=== PATIENT | male | born 1970 | race Caucasian/White ===

== ENCOUNTER 2021-07-11 10:12 | Emergency (ER) | payer OTHER, SELFPAY ==
[2021-07-11 10:28] VITALS: BP 119/74; PULSE 71; RESP 18; TEMP 36.5; O2SAT 98
--- NOTE | 2021-07-11 10:28 | ED.GENADULT ---
HPI - General Adult General Chief complaint: Upper Respiratory Infection Stated complaint: sinus complaints Time Seen by Provider: 07/11/21 10:30 Source: patient Mode of arrival: ambulatory Limitations: no limitations History of Present Illness HPI narrative: 50-year-old male patient presents to the [facility] with complaints of nasal congestion for the past week. Patient denies fevers, body aches or chills. Denies any ear pain, coughing, chest pain or sore throat. Patient states mainly he just has a lot of congestion and pressure to the nasal canal and around the eyes. Patient states he has not taken anything for symptoms until last night which he took NyQuil. Patient states he is fully vaccinated against Covid with a 2 dose series. Related Data Allergies Allergy/AdvReac Type Severity Reaction Status Date / Time No Known Allergies Allergy Verified 05/18/20 13:35 Review of Systems Review of Systems: CONSTITUTIONAL: Denies fever, chills, or sweats. EYES: Denies visual changes, redness, or discharge. ENT: Positive rhinorrhea, congestion, denies sore throat, or otalgia. CARDIOVASCULAR: Denies chest pain, palpitations, or edema. RESPIRATORY: Denies cough or dyspnea. GASTROINTESTINAL: Denies abdominal pain, nausea, vomiting, or diarrhea. GENITOURINARY: Denies dysuria or hematuria. SKIN: Denies rash or itching. MUSCULOSKELETAL: Denies back pain, joint pain, or myalgia. NEUROLOGIC: Denies headache, numbness, or weakness. PSYCHIATRIC: Denies anxiety or depression. [facility] Past Medical History Medical History BMI 25.0-25.9,adult Encounter to establish care Hyperlipidemia LDL goal <100 Protein in urine Screening for prostate cancer Vitamin D deficiency Surgical History Surgical History History of vasectomy Family History Family History Father Alcohol abuse Acute myocardial infarction Social History Social History Smoking status: Never smoker Second hand tobacco smoke exposure: No Alcohol intake: current Alcohol use details: Occasional Substance use: never Substance use type: does not use Gender identity (if verbalized by the patient): Male Sexual Orientation (if Verbalized by the Patient): Straight or Heterosexual Spiritual care concerns: No Agree to blood products: Yes Comments At the time of my signature I agree with nursing past medical history, surgical, social, and family history. There is no relevant family history pertinent to the presenting complaint. Exam Narrative: GENERAL: Well-appearing, well-nourished, and in no acute distress. HEAD: Normocephalic, atraumatic. EYES: PERRLA and EOMI. ENT: Nares with erythema and edema noted bilaterally r, no rhinorrhea or epistaxis. Mucous membranes moist. Posterior pharynx with no erythema, tonsillar edema, exudates or lesions present. Bilateral TMs are clear with no erythema or foreign bodies in the canal. NECK: Supple. No lymphadenopathy CHEST: Clear to auscultation. No respiratory distress. HEART: Regular rate and rhythm. No murmur heard. Normal peripheral pulses. ABDOMEN: Soft, nontender, nondistended, normal active bowel sounds. EXTREMITIES: Normal range of motion. No edema. SKIN: Warm, dry, no rash. NEURO: No focal deficits. Alert and oriented x3. Course Reevaluation(s) Reevaluation #1: Reevaluated patient notified him that his Covid test today is negative. We will go ahead and discharge him home with oral steroids, daily antihistamine nasal steroid for his symptoms. Patient verbalized understanding denies any other questions or concerns at this time. Date: 07/11/21 Time: 11:04 Vital Signs Vital signs: Vital Signs Temperature 36.5 C 07/11/21 10:28 Pulse Rate 71 07/11/21 10:28 Respiratory Rate 18 07/11/21
== END 2021-07-11 11:05 | disposition home or self-care (01) ==
PROVIDERS: Emergency Provider Nurse Practitioner Family; PCP Family Medicine
DX: J00 Acute nasopharyngitis [common cold] (principal); J01.90 Acute sinusitis, unspecified; Z20.822 Contact with and (suspected) exposure to COVID-19; E55.9 Vitamin D deficiency, unspecified; Z98.52 Vasectomy status
CPT/HCPCS: 87426; 99213; C9803; G0463

== ENCOUNTER 2022-09-06 09:00 | Outpatient (NON) | payer OTHER, SELFPAY | END 2022-09-06 09:01 | disposition home or self-care (01) | PROVIDERS: PCP Nurse Practitioner Family; Visit Provider Internal Medicine Gastroenterology | DX: Z12.11 Encounter for screening for malignant neoplasm of colon (principal); D12.2 Benign neoplasm of ascending colon | CPT/HCPCS: 88305 ==

== ENCOUNTER 2022-09-06 10:17 | Day surgery (SDC) | payer OTHER, SELFPAY ==
[2022-08-29 09:18] VITALS: BMI 25.7
--- NOTE | 2022-09-06 07:51 | WPDANESEPPF ---
Anes - Initial Pre Proc Eval Procedure: Operation Date: 09/06/22 13:00 Proposed Procedures p Screening Colonoscopy - Bruce Rodríguez MD Date/Time: 09/06/22 07:51 Surgeon: Bruce Rodríguez MD Pre Op Diagnosis: Neoplasm Screening Patient Data Age: 51 Gender: M Height: 1.85 m Weight: 88.5 kg Allergies Allergy/AdvReac Type Severity Reaction Status Date / Time No Known Allergies Allergy Verified 09/06/22 12:17 Home Medications Medication Instructions Recorded Confirmed Type cholecalciferol (vitamin D3) 25 25 mcg PO DAILY #90 caps 05/18/20 09/06/22 Rx mcg (1,000 unit) capsule omega-3 fatty acids 1,000 mg 1,000 mg PO DAILY #90 caps 05/18/20 09/06/22 Rx capsule (Fish Oil Concentrate) multivit with minerals-iron 18 1 tablet PO DAILY 08/29/22 09/06/22 History mg-folic ac 400 mcg-vit K 25 mcg tablet (Adults Multivitamin) vitamin B12 500 mcg-folic acid 400 1 tablet PO DAILY 08/29/22 09/06/22 History mcg tablet Patient hx anesthesia problems: none Family hx anesthesia problems: none Results Review: All pre-operative results and documents have been reviewed as part of the pre-operative evaluation. [facility] Past Medical History Medical History (Updated 04/11/22 @ 15:14 by Riddhi Owen NP) B12 deficiency BMI 25.0-25.9,adult BMI 26.0-26.9,adult Elevated fasting glucose Encounter to establish care Hyperlipidemia LDL goal <100 Protein in urine Screening for colon cancer Screening for prostate cancer Vitamin D deficiency Surgical History Surgical History History of vasectomy Family History Family History Father Alcohol abuse Acute myocardial infarction Social History Social History Smoking status: Never smoker Second hand tobacco smoke exposure: No Alcohol intake: current Alcohol use details: Occasional Substance use: never Substance use type: does not use Living arrangements: with family Occupation/Education: occupation Gender identity (if verbalized by the patient): Male Sexual Orientation (if Verbalized by the Patient): Straight or Heterosexual Spiritual care concerns: No Agree to blood products: Yes Anes - Eval Final PreProcedure Day of Procedure 09/06/22 07:51 Patient weight: overweight Heart: regular rate and rhythm Lungs: clear to auscultation Airway: Mallampati scale class II Neurological: alert and oriented Last oral intake: >/= 8 hours ASA classification: II Emergent: no Anesthetic plan: proceed Anesthesia type and monitoring: general GIVS and standard monitoring Results Review: All pre-operative results and documents have been reviewed as part of the pre-operative evaluation. Informed Consent: The patient's anesthetic plan and its attendant risks and benefits were discussed with the patient/family/POA. Questions were solicited and answers provided to the satisfaction of the patient/family/POA.
[2022-09-06 11:55] VITALS: BP 120/76; PULSE 66; RESP 16; TEMP 36.7; O2SAT 100
[2022-09-06] MEDS: LACTATED RINGERS 1,000 ML 150 ML IV CONT (12:22)
--- NOTE | 2022-09-06 12:26 | PM.HPGS ---
History of Present Illness History of Present Illness Consent: Risks, benefits, and alternatives have been discussed and questions answered. Patient agrees to proceed with procedure. Chief complaint: Neoplasm Screening Narrative: Joshua Potter is a 51 year old male here for first screening colonoscopy Review of Systems Constitutional: Constitutional: Denies headache(s) and Denies weakness Eyes: Eyes: Denies blurry vision ENT: Reports Normal hearing present, Denies headache(s) and Denies neck pain Cardiovascular: Cardiovascular: Denies chest pain and Denies dyspnea Respiratory: Respiratory: Denies dyspnea Gastrointestinal: Gastrointestinal: Reports no additional gastrointestinal complaints Genitourinary: Genitourinary: Denies dysuria Musculoskeletal: Musculoskeletal: Denies neck pain Integumentary/Breasts: Skin/Breast: Denies dry skin Neurologic: Reports Normal hearing present, Denies headache(s) and Denies weakness Psychiatric: Psychiatric: Denies anxiety Endocrine: Endocrine: Denies change in body appearance Hematologic/Lymphatic: Hematologic/Lymphatic: Denies easy bleeding Allergic/Immunologic: Allergic/Immunologic: Denies urticaria PMF Past Medical History Medical History (Updated 04/11/22 @ 15:14 by Riddhi Owen NP) B12 deficiency BMI 25.0-25.9,adult BMI 26.0-26.9,adult Elevated fasting glucose Encounter to establish care Hyperlipidemia LDL goal <100 Protein in urine Screening for colon cancer Screening for prostate cancer Vitamin D deficiency Surgical History Surgical History History of vasectomy Family History Family History Father Alcohol abuse Acute myocardial infarction Social History Social History Smoking status: Never smoker Second hand tobacco smoke exposure: No Alcohol intake: current Alcohol use details: Occasional Substance use: never Substance use type: does not use Living arrangements: with family Occupation/Education: occupation Gender identity (if verbalized by the patient): Male Sexual Orientation (if Verbalized by the Patient): Straight or Heterosexual Spiritual care concerns: No Agree to blood products: Yes Meds Home Medications and Allergies Home Medications Medication Instructions Recorded Confirmed Type cholecalciferol (vitamin D3) 25 25 mcg PO DAILY #90 caps 05/18/20 09/06/22 Rx mcg (1,000 unit) capsule omega-3 fatty acids 1,000 mg 1,000 mg PO DAILY #90 caps 05/18/20 09/06/22 Rx capsule (Fish Oil Concentrate) multivit with minerals-iron 18 1 tablet PO DAILY 08/29/22 09/06/22 History mg-folic ac 400 mcg-vit K 25 mcg tablet (Adults Multivitamin) vitamin B12 500 mcg-folic acid 400 1 tablet PO DAILY 08/29/22 09/06/22 History mcg tablet Allergies Allergy/AdvReac Type Severity Reaction Status Date / Time No Known Allergies Allergy Verified 09/06/22 12:17 Vital Signs Vital Signs - 24 hr 09/06/22 11:55 Temperature 98.1 F Pulse Rate 66 Respiratory Rate 16 Blood Pressure 120/76 Pulse Oximetry 100 Oxygen Delivery Room Air Exam Const: General: comfortable and no acute distress HENMT: Face/Nose/Sinus: Normal nares present Eyes: General: appearance normal, both eyes and all related structures Neck: Neck: no JVD Resp: Auscultation: clear to auscultation bilaterally Cardio: Rate: regular rate Rhythm: regular rhythm GI: Inspection: non-distended GI Palp: Yes Soft to palpation Skin: General skin exam: normal color Neuro: General: gait normal Speech: normal speech Extrem: General: normal to inspection Psych: Mental Status: mental status grossly normal Assessment and Plan Assessment and plan (1) Screening for colon cancer: Code(s): Z12.11 - Encounter for screening for malignant neoplasm of colon
[2022-09-06 12:50] VITALS: BP 102/73; PULSE 67; RESP 16; O2SAT 99
[2022-09-06 13:00] VITALS: BP 97/76; PULSE 58; RESP 16; O2SAT 100
[2022-09-06 13:10] VITALS: BP 116/86; PULSE 64; RESP 16; O2SAT 100
--- NOTE | 2022-09-06 13:29 | SUR.PHASEII ---
PT AWAKE AND ALERT. DENIES PAIN. DRESSED AND READY FOR DISCHARGE. SPOUSE RETURNING TO FACILITY
--- NOTE | 2022-09-06 14:23 | WPDANESPN ---
Anes - Prog Note Post-Op Date/Time: 09/06/22 14:23 Cardiovascular status: normal Respiratory status: normal Airway patency: baseline Mental status: baseline Post-Op hydration status: normal Vital Signs: Last Vital Signs Temp 36.7 C 09/06/22 11:55 Pulse 64 09/06/22 13:10 Resp 16 09/06/22 13:10 BP 116/86 09/06/22 13:10 Pulse Ox 100 09/06/22 13:10 O2 Del Method Room Air 09/06/22 13:10 Pain Score (VAS): 0 I/O: Intake & Output 09/05/22 09/06/22 09/06/22 23:59 07:59 15:59 Intake Total 450 Balance 450 Post-procedural complaints: none Patient Feedback: Patient satisfied with anesthetic care. Other Findings: Patient vital signs back to baseline. Patient denies nausea and vomiting. Patient's pain under control. Patient OK for discharge.
== END 2022-09-06 13:43 | disposition home or self-care (01) ==
PROVIDERS: PCP Nurse Practitioner Family; Visit Provider Internal Medicine Gastroenterology
PROC: 0DJD8ZZ Inspection of Lower Intestinal Tract, Via Natural or Artificial Opening Endoscopic (ICD-10-PCS; CPT 45378; principal; 2022-09-06 13:00)
DX: Z12.11 Encounter for screening for malignant neoplasm of colon (principal)
CPT/HCPCS: 45385

== ENCOUNTER 2022-09-21 16:43 | Emergency (ER) | payer OTHER, SELFPAY ==
[2022-09-21 17:00] VITALS: BP 142/78; PULSE 68; RESP 16; TEMP 36.4; O2SAT 99
--- NOTE | 2022-09-21 17:12 | ED.URI ---
HPI - URI/Sore Throat General Chief Complaint: Upper Respiratory Infection Stated Complaint: cold symptoms Time Seen by Provider: 09/21/22 17:12 Source: patient and RN notes reviewed Mode of arrival: ambulatory Limitations: no limitations History of Present Illness HPI Narrative: 51-year-old male presented for complaint of runny nose and cough, onset 2 days ago. He endorses feeling unwell last couple of days with some 'aches.' He has taken NyQuil for symptoms. He denies shortness of breath, wheezing, nausea vomiting diarrhea fevers or chills. Denies sick contacts. MD elicited complaint: cough Related Data Home Medications Medication Instructions Recorded Confirmed No Home Medications 09/21/22 09/21/22 Allergies Allergy/AdvReac Type Severity Reaction Status Date / Time No Known Allergies Allergy Verified 09/21/22 17:05 Review of Systems Review of Systems: CONSTITUTIONAL: Endorses malaise, denies chills, sweats, fever EYES: Denies visual changes, redness, or discharge ENT: Reports rhinorrhea, denies congestion, sinus pain, otalgia, sore throat CARDIOVASCULAR: Denies chest pain, palpitations, edema RESPIRATORY: Reports cough, post nasal drainage. Denies dyspnea GASTROINTESTINAL: Denies abdominal pain, nausea, vomiting, diarrhea SKIN: Denies rash or itching MUSCULOSKELETAL: Endorses myalgia NEUROLOGIC: Endorses headache PMFSH Past Medical History Medical History B12 deficiency BMI 25.0-25.9,adult BMI 26.0-26.9,adult Elevated fasting glucose Encounter to establish care Hyperlipidemia LDL goal <100 Protein in urine Screening for colon cancer Screening for prostate cancer Vitamin D deficiency Surgical History Surgical History History of vasectomy Family History Family History Father Alcohol abuse Acute myocardial infarction Social History Social History Smoking status: Never smoker Second hand tobacco smoke exposure: No Alcohol intake: current Alcohol use details: Occasional Substance use: never Substance use type: does not use Living arrangements: with family Occupation/Education: occupation Gender identity (if verbalized by the patient): Male Sexual Orientation (if Verbalized by the Patient): Straight or Heterosexual Spiritual care concerns: No Agree to blood products: Yes Exam Narrative: GENERAL: mildly Ill-appearing, nontoxic EYES: PERRLA, conjunctivae clear ENT: Mucous membranes moist. TMs pearly bonilla with dull light reflex bilaterally; no tragal tenderness. Oropharynx erythematous without lesions or exudate NECK: Supple. No lymphadenopathy CHEST: Clear to auscultation, breath sounds equal. No respiratory distress, speaks in full sentences. HEART: Regular rate and rhythm. No murmur heard. SKIN: Warm, dry, no rash. NEURO: Alert and oriented x3. Course Course Emergency Course: Patient is aware of diagnosis, understands and agrees to treatment plan. Anticipatory guidance given. Patient agrees to follow-up as directed and is aware of reasons to seek care at the emergency department. Portions of this record may have been created with voice recognition software Level of Care: Express Care Visit Vital Signs Vital signs: Vital Signs Temperature 97.5 F L 09/21/22 17:00 Pulse Rate 68 09/21/22 17:00 Respiratory Rate 16 09/21/22 17:00 Blood Pressure 142/78 H 09/21/22 17:00 Pulse Oximetry 99 09/21/22 17:00 Oxygen Delivery Room Air 09/21/22 17:00 Temperature 97.5 F L 09/21/22 17:00 Pulse Rate 68 09/21/22 17:00 Respiratory Rate 16 09/21/22 17:00 Blood Pressure 142/78 H 09/21/22 17:00 Pulse Oximetry 99 09/21/22 17:00 Oxygen Delivery Room Air 09/21/22 17:00 reviewed MDM - URI/Sore Throat
== END 2022-09-21 18:00 | disposition home or self-care (01) ==
PROVIDERS: Emergency Provider Nurse Practitioner Family; PCP Family Medicine
DX: U07.1 COVID-19 (principal); E78.5 Hyperlipidemia, unspecified
CPT/HCPCS: 87081; 87426; 87804; 87880; 99213; C9803; G0463